=== PATIENT | male | born 1965 | race Caucasian/White ===

== ENCOUNTER 2017-07-31 14:00 | Outpatient (RCR) | payer OTHER | END 2017-07-31 15:15 | disposition home or self-care (01) | PROVIDERS: ATTEND Family Medicine | DX: R29.898 Other symptoms and signs involving the musculoskeletal system (principal); Z87.820 Personal history of traumatic brain injury ==

== ENCOUNTER → 2017-08-05 | Outpatient (CLI) | payer OTHER | LOC: CARD 11:27 | PROVIDERS: ATTEND Internal Medicine Cardiovascular Disease | DX: I11.9 Hypertensive heart disease without heart failure (principal); E11.9 Type 2 diabetes mellitus without complications; E66.9 Obesity, unspecified | CPT/HCPCS: 93306 ==

== ENCOUNTER → 2017-08-13 | Outpatient (CLI) | payer OTHER ==
--- NOTE | 2017-08-13 14:22 | Diagnostic Imaging Report ---
EXAMINATION: PA and lateral chest at 2:26 PM. INDICATION: Diabetes mellitus. COMPARISON: There are no prior studies available for comparison. FINDINGS: The heart is enlarged. The lungs are clear. There is no sign of failure, pneumonia, or pleural effusion to suggest an acute abnormality. The mediastinum is not widened. The osseous structures are intact. IMPRESSION: There is cardiomegaly but no evidence for an acute cardiopulmonary abnormality. Dictated by: Dictated on workstation # [id number]
== END ==
LOC: RAD 13:47
PROVIDERS: ATTEND Physician Assistant
DX: I11.9 Hypertensive heart disease without heart failure (principal); I48.91 Unspecified atrial fibrillation; E11.9 Type 2 diabetes mellitus without complications; E66.9 Obesity, unspecified
CPT/HCPCS: 71046